=== PATIENT | female | born 1980 | race Caucasian/White ===

== ENCOUNTER 2021-10-18 19:16 | Emergency (ER) | payer BC ==
[~2021-10-18] VITALS: Ht 177.8 cm; Wt 68.0 kg
[2021-10-18] MEDS ORDERED: ESCI10TA PO (19:36)
--- NOTE | 2021-10-18 19:37 | NUR ---
DR MORA IN TRIAGE FOR EXAM
[2021-10-18 19:41] VITALS: BP_SYST 142
--- NOTE | 2021-10-18 19:41 | NUR ---
PT COMES IN WITH UNCONTROLLED CRYING, STATES FEELING SAD FOR THE LAST WEEK, DECREASED APPETITE AND LACK OF SLEEP. AT BEDSIDE. THEY REPORT GONG TO ER LAST WEEK, WAS GIVEN FULL WORK UP AND INFORMED SHE HAD ANXIETY. PT VERBLAIZES WORK STRESS. DENIES SI/HI. VSS.
--- NOTE | 2021-10-18 19:50 | NUR ---
Patient given written and verbal discharge instructions and verbalizes understanding. ER MD discussed with patient the results and treatment provided. Patient in stable condition. ID arm band removed. Rx of LEXAPRO given. Patient educated on pain management and to follow up with PMD. Pain Scale . Opportunity for questions provided and answered. Medication side effect fact sheet provided.
== END 2021-10-18 19:57 | disposition home or self-care (01) ==
LOC: SED 19:16
DX: F32.9 Major depressive disorder, single episode, unspecified (principal); Z79.899 Other long term (current) drug therapy
CPT/HCPCS: 99284